=== PATIENT | male | born 1980 | race Two or more races ===

== ENCOUNTER 2016-06-04 13:40 | Emergency (ER) | payer OTHER ==
[2016-06-04 13:48] VITALS: TEMP 97.5
[2016-06-04] MEDS ORDERED: TDAP ADULT 0.5 ML INJ (BOOSTRIX) IM ONE (14:01)
--- NOTE | 2016-06-04 14:17 | EDPHY ---
H & P Stated Complaint: TRIPPED ON ICE/FELL HITTING FACE ON CONCRETE/DENIES LOC HPI/ROS: CHIEF COMPLAINT: Fall, facial lacerations HISTORY OF PRESENT ILLNESS: walking outside on the ice this afternoon when he slipped and fell, landing on his face. No loss of consciousness. No headache. Sustained lacerations below the left eye on the maxillary scan as well as over the left eyebrow. No visual disturbance. No neck injury. No chest or back pain. No shortness of breath. No abdominal pain. No injury to the arms or legs. Minimal pain. Minimal bleeding. Uncertain when his last tetanus vaccine was administered. No other associated complaints or modifying factors. TETANUS STATUS: uncertain REVIEW OF SYSTEMS: Ten systems reviewed and are negative unless otherwise noted in the HPI EXAMINATION General Appearance: Alert, no distress Head: normocephalic, atraumatic . Facial lacerations as below. Eyes: Pupils equal and round, no conjunctival pallor or injection . No hyphema. No subconjunctival hemorrhage. EOMs intact ENT, Mouth: Mucous membranes moist. Uvula midline. No lesions. Normal dental alignment per patient Neck: Normal inspection. Supple nontender. No bony tenderness at any location Respiratory: No dyspnea or retractions. No distress Cardiovascular: Pulses normal throughout. Brisk cap refill Gastrointestinal: No distention Back: non-tender, no bony abnormalities. No abrasions, lacerations or contusions Neurological: A&O, sensory symmetric, strength symmetric Skin: Warm and dry. Three lacerations to the face. 1.: Left maxilla 1.5 cm superficial no foreign body. 2. left eyebrow, 1.5 cm, superficial, no foreign body. 3. left eyebrow, 1 cm, superficial, no foreign body Extremities: Nontender, no pedal edema. Range of motion intact Psychiatric: Mood and affect normal DIFFERENTIAL DIAGNOSES: Including but not limited to lacerations, contusion, abrasion MDM: 2:10 p.m. mechanical fall with lacerations to the face as noted above. There are no foreign body noted. We will anesthetize and clean wound to evaluate for the need for suture repair. There is no bony tenderness of the face, head or neck. No injuries elsewhere. 3:00 p.m. wounds have been anesthetized, irrigated and closed as listed below. Wound care discussed. Discharged home in stable condition. Return in 5-7 days for suture removal. Return sooner for signs of infection as discussed. Patient is comfortable with this plan PROCEDURE: Laceration Consent: verbal Location: left maxilla Length of repair: 1.5 cm Complexity: simple Layer involvement: single Anesthesia: 1% lidocaine plain, 0.25% Marcaine with epi, 5 mL Irrigation: extensive Debridement: none Procedure description: after good anesthesia and irrigation, the wound was Explored and found to be without foreign body. The wound was then approximated with 6 0 Prolene. Good approximation of wound borders. Good hemostasis. no complications. Tolerated the procedure well. Suture/Staple material: 6-0 Prolene, 5 simple interrupted sutures Wound care: routine as discussed Suture/Staple removal: 5-7 days PROCEDURE:Laceration Consent: verbal Location: left eyebrow x2 Length of repair: 3 cm total Complexity: simple Layer involvement: single Anesthesia: 1% lidocaine plain, 0.25% Marcaine with epi, 5 mL Irrigation: extensive Debridement: none Procedure description: after good anesthesia and irrigation, the wound was Explored and found to be without foreign body. The wound was then approximated with 6 0 Prolene. Good approximation of wound borders. Good hemostasis. no complications. Tolerated the procedure well. Suture/Staple material: 6-0 Prolene , 8 simple interrupted sutures Wound care: routine as discussed Suture/Staple removal: 5-7 days ED Precautions: Worsening pain. Erythema, edema, cyanosis, pallor, paresthesia or anesthesia. SUPERVISION:This patient was independently evaluated without the aide of supervising physician. Source: Patient Exam Limitations: No limitations - Personal History Current Tetanus/Diphtheria Vaccine: Yes - Medical/Surgical History Hx Asthma: No Hx Chronic Respiratory Disease: No Hx Diabetes: No Hx Cardiac Disease: No Hx Renal Disease: No Hx Cirrhosis: No Hx Alcoholism: No Hx HIV/AIDS: No Hx Splenectomy or Spleen Trauma: No Other PMH: DENIES - Social History Smoking Status: Never smoked Constitutional: Initial Vital Signs Temperature (C) 97.5 F 06/04/16 13:42 Heart Rate 68 06/04/16 13:42 Respiratory Rate 18 06/04/16 13:42 Blood Pressure 137/92 H 06/04/16 13:42 O2 Sat (%) 99 06/04/16 13:42 O2 Delivery Mode Room Air Allergies/Adverse Reactions: No Known Allergies Allergy (Unverified 06/04/16 13:41) Home Medications: Medication Instructions Recorded NK [No Known Home Meds] 06/04/16 Medical Decision Making - Data Points Medications Given: Discontinued Medications Diphtheria/Tetanus/Acell Pertussis (Boostrix) 0.5 ml IM .ONCE ONE Stop: 06/04/16 14:02 Last Admin: 06/04/16 14:14 Dose: 0.5 ml Departure - Departure Disposition: Home, Routine, Self-Care Clinical Impression: Facial laceration Qualifiers: Encounter type: initial encounter Qualifier Code: (S01.81XA) Laceration without foreign body of other part of head, initial encounter Eyebrow laceration Qualifiers: Encounter type: initial encounter Laterality: left Qualifier Code: (S01.112A) Laceration without foreign body of left eyelid and periocular area, initial encounter Condition: Good Instructions: Care For Your Stitches (ED), Laceration (ED), Facial Laceration ( ED) Additional Instructions: follow-up with primary care physician. Return to ER for worsening pain, bleeding, signs of infection as discussed. Referrals: Natalie Ortiz MD [Medical Doctor] - As per Instructions
[2016-06-04 15:16] VITALS: BP 129/86; PULSE 67; RESP 14; O2SAT 97
== END 2016-06-04 15:13 | disposition home or self-care (01) ==
PROC: 0HQ1XZZ Repair Face Skin, External Approach (ICD-10-PCS; principal; 2016-06-04)
DX: S01.112A Laceration without foreign body of left eyelid and periocular area, initial encounter (principal); S01.81XA Laceration without foreign body of other part of head, initial encounter; Z23 Encounter for immunization; W00.0XXA Fall on same level due to ice and snow, initial encounter; Y92.89 Other specified places as the place of occurrence of the external cause; Y93.01 Activity, walking, marching and hiking